=== PATIENT | female | born 1945 | race Caucasian/White ===

== ENCOUNTER 2020-01-05 06:43 | Day surgery (SDC) | payer MEDICARE ==
[2019-12-29 15:17] LABS: BASOPHILS # (AUTO) 0.1 X10'3 (0-0.2); BASOPHILS % (AUTO) 0.6 % (0-1); EOSINOPHILS # (AUTO) 0.1 X10'3 (0-0.9); EOSINOPHILS % (AUTO) 0.9 % (0-6); LYMPHOCYTES # (AUTO) 1.8 X10'3 (1.1-4.8); MEAN CORPUSCULAR HEMOGLOBIN 31.2 PG (27.0-31.0); MEAN CORPUSCULAR HGB CONC 33.4 g/dL (33.0-36.5); MEAN CORPUSCULAR VOLUME 93.4 FL (78-98); MEAN PLATELET VOLUME 7.4 FL (7.4-10.4); MONOCYTES # (AUTO) 0.4 X10'3 (0-0.9); MONOCYTES % (AUTO) 4.5 % (2-12); NEUTROPHILS # (AUTO) 6.6 X10'3 (1.8-7.7); PRE OP HEMATOCRIT 40.9 % (35.0-45.0); PRE OP HEMOGLOBIN 13.6 g/dL (12.0-16.0); PRE OP PLATELET COUNT 243 X10'3 (140-440); RED BLOOD COUNT 4.37 X10'6 (4.20-5.60); RED CELL DISTRIBUTION WIDTH 14.7 % (11.5-14.5)
[2019-12-29 15:20] LABS: CLARITY,URINE SLIGHTLY CLOUDY (Clear); COLOR,URINE YELLOW (Yellow); GLUCOSE, URINE NEGATIVE (Neg); KETONES,URINE NEGATIVE (Neg); LEUKOCYTE ESTERASE ,URINE MODERATE (Neg); NITRITES, URINE NEGATIVE (Neg); OCCULT BLOOD,URINE NEGATIVE (Neg); PH,URINE 5.5 (4.8-8.0); PROTEIN,URINE NEGATIVE (Neg); UROBILINOGEN,URINE 0.2 E.U/dL (0.2-1.0)
[2019-12-29 15:29] LABS: ALBUMIN 3.8 G/DL (3.4-5.0); ALBUMIN/GLOBULIN RATIO 1.2 (1.1-1.5); ALKALINE PHOSPHATASE 79 IU/L (46-116); BLOOD UREA NITROGEN 9 MG/DL (7-18); BUN/CREATININE RATIO 11.8 (6.6-38.0); CHLORIDE 105 MMOL/L (99-107); CREATININE 0.76 MG/DL (0.40-0.90); PRE OP ALT 22 U/L (30-65); PRE OP ANION GAP 5 (8-16); PRE OP AST 24 U/L (10-37); PRE OP BILIRUB, TOTAL 0.4 MG/DL (0.0-1.0); PRE OP GLUCOSE 100 MG/DL (70-104); PRE OP POTASSIUM 3.7 MMOL/L (3.4-5.1); PRE OP SODIUM 141 MMOL/L (135-145); TOTAL CARBON DIOXIDE 30.8 MMOL/L (24-32); TOTAL PROTEIN 7.1 G/DL (6.4-8.2); eGFR 75 ML/MIN
[2019-12-29 15:39] LABS: UA COLLECTION TYPE CLN CATCH MIDSTREAM
[2019-12-29 15:41] LABS: BACTERIA,URINE 1+ /HPF (Neg); CAL OXALATE CRYSTALS 2+ /HPF (NEGATIVE); MUCUS STRANDS FEW /LPF (Neg); SQUAMOUS EPITHELIAL CELL,UR MANY /LPF (FEW)
[2019-12-29 15:42] LABS: RBC,URINE 0-2 /HPF (0-2); TRANSITIONAL EPI CELLS,URINE FEW /HPF
[~2020-01-05] VITALS: Ht 165.1 cm; Wt 61.8 kg
[2020-01-05] VITALS (49 sets, daily range): BP systolic 109–162; BP diastolic 50–87
[~2020-01-05 06:43] MED LIST: ASPI-611 PO; CHOL20004 PO; CITA20TA16 PO; FURO20TA4 PO; HYDR-3965 PO; LAMO200T10 PO; METH20TA PO; RISP0.253 PO; SIMV-45 PO; VIT B12 PO; ceFAZolin 2gm in dextrose, iso 50 ML IV ONE; famotidine 10mg tablet PO ONE; ringers solution, lacted 1,000 ML IV SCH
[2020-01-05] MEDS ORDERED: BUPIVAcaine/PF 2.5 mg/ml (0.25%) 30ml vial ONE (06:57)
[2020-01-05] MEDS ORDERED: LIDOcaine 1% (10mg/ml) 2ml vial ONE (07:04)
[2020-01-05] MEDS ORDERED: sevoflurane 250ml liquid IH ONE (09:16)
[2020-01-05] MEDS ORDERED: morphine 2 MG/ML inj. syringe IV PRN (09:20)
[2020-01-05] MEDS ORDERED: hydrALAZINE 20mg/ml inj. IV PRN (09:20)
[2020-01-05] MEDS ORDERED: ondansetron/PF 4mg/2ml inj IV PRN ×2 (09:20→16:10)
[2020-01-05] MEDS ORDERED: fentaNYL/PF 50MCG/1 ML 2ML syringe IV PRN (09:20)
[2020-01-05] MEDS ORDERED: labetalol 20mg/4ml (5mg/ml) syringe IV PRN (09:20)
[2020-01-05] MEDS ORDERED: morphine 4 MG/ML inj SYRINge IV PRN (09:20)
[2020-01-05] MEDS ORDERED: ringers solution, lacted 1,000 ML IV SCH (09:20)
[2020-01-05] MEDS ORDERED: fentaNYL/PF 50MCG/1 ML 2ML syringe ONE (09:24)
[2020-01-05] MEDS ORDERED: midazolam 2 mg/2 ml injection ONE (09:24)
[2020-01-05] MEDS ORDERED: propofol inj 20 ML IV ONE (09:27)
[2020-01-05] MEDS ORDERED: rocuronium 10mg/ml inj IV ONE (09:27)
[2020-01-05] MEDS ORDERED: LIDOcaine 2% (20mg/ml) 5ml vial ONE (09:27)
[2020-01-05] MEDS ORDERED: dexamethasone sod phosphate 4mg/ml inj. ONE (09:32)
[2020-01-05] MEDS ORDERED: neostigmine methylsulfate 1 MG/ML 10ml vial ONE (09:33)
[2020-01-05] MEDS ORDERED: ondansetron/PF 4mg/2ml inj ONE (09:33)
[2020-01-05] MEDS ORDERED: glycopyrrolate 0.2mg/ml inj ONE (09:33)
[2020-01-05] MEDS ORDERED: ePHEDrine 50MG/ML INJ. ONE (09:38)
--- NOTE | 2020-01-05 10:36 | NUR ---
Received from OR via [facility], accompanied by Anesthesiologist FARZAD and report given by Anesthesiolgist. PATIENT WITH 20G PIV LEFTF UE RUNNING LR AT 100. DENIES PAIN AT THIS TIME. PATIENT WITH GT TO RIGHT ABDOMEN. VSS. BANDAIDS AND ABDOMINAL DRESSING IS CDI. Addendum: 01/05/20 at 1046 by Sudhir Bob RN, RN Amended: Links added.
[2020-01-05] MEDS: fentaNYL/PF 50MCG/1 ML 2ML syringe IV PRN ×2 (11:03→12:43)
--- NOTE | 2020-01-05 11:56 | NUR ---
Report called to receiving nurse. Transferred via [facility]URNEY WITH ALL Belongings TO THE PAS UNIT. Special Issues communicated to receiving nurse ISACC BERTRAND.PATIENT ON 4LPM NASAL CANNULA SATURATING IN THE MID-HIGH 80'S. BP WNL AND PATIENT WITHOUT SIGNS OF BLEED NOR HYPOVOLEMIA. Addendum: 01/05/20 at 1214 by Sudhir Bob RN, RN Amended: Links added.
--- NOTE | 2020-01-05 12:06 | NUR ---
ASSUMED CARE OF PT, ATTACHED TO MONITOR, SA02 86% ON R/A ATTACHED NC 6 LITERS, ONLY INCREASED TO 88 PT PAINFUL, ABDOMINAL DRSG CDI, GT W/SMALL AMT OF BLOODY DRAINAGE, PT PLACED ON SIMPLE MASK AND INCREASED TO 12 LITERS, SAO2 UP TO 91%, 2 MG MORPHINE GIVEN. Addendum: 01/05/20 at 1233 by Amy Madrigal RN Amended: Links added.
[2020-01-05] MEDS ORDERED: oxyCODONE/APAP 5-325mg tablet PO ONE (13:15)
[2020-01-05] MEDS ORDERED: furosemide 40mg/4ml inj IV ONE (13:25)
--- NOTE | 2020-01-05 14:40 | NUR ---
PTS SA02 DOWN TO MID 60'S, PT TIRED BUT DENIES SOB, ATTACHED TO ANOTHER MONITOR TO CORRELATE AND BOTH MONITORS ON BOTH OF PTS WARM HANDS SHOW SA02 IN 60'S, SAT PT UP, PLACED ON NON-REBREATHER W/SA02 IMPROVING TO 80'S, CALL INTO DR PANDA FOR UPDATE, ORDERED CXR AND ISTAT, BOTH COMPLETED, PT TIRED BUT REMAINS A/O X 4, IS ABLE TO CARRY A CONVERSATION, PT STATES SHE NEEDS TO GET UP TO USE BATHROOM, PT INSTEAD PLACED ON BEDPAN FOR VOID AMT OF 210 YELLOW URINE. MONITORING AND WEANING TOLERATED, AWAITING DR ELLIOTT ORDERS. Addendum: 01/05/20 at 1603 by Amy Madrigal RN Amended: Links added.
[2020-01-05 15:06] LABS: ISTAT CREATININE 0.7 mg/dL (0.6-1.1); ISTAT HGB 13.9 g/dl (12.0-16.0); ISTAT IONIZED CALCIUM 1.14 mmol/L (1.03-1.32); ISTAT K 3.6 mmol/L (3.5-5.1); POC BUN/CREATININE RATIO 17.1 (6.6-38.0)
[2020-01-05] MEDS ORDERED: HYDROcodone/acetaminophen 10/325mg tab PO PRN (16:10)
[2020-01-05] MEDS ORDERED: HYDROcodone/acetaminophen 5mg/325mg tablet PO PRN ×2 (16:10→18:50)
--- NOTE | 2020-01-05 16:56 | NUR ---
RECEIVED REPORT FROM [facility]. PT WILL BE UP SOON
--- NOTE | 2020-01-05 17:26 | NUR ---
PT GIVEN PERCOCET FOR ABD PAIN PRIOR TO TRANSPORTING, Report called to receiving nurse. Transferred via GURNEY ON 8 LITERS ON SIMPLE MASK TO ROOM 348B, PT WAS ABLE W/ASSISTANCE TO AMBULATE FROM RNEY TO BED APPROX 10 FEET, 1 BAG OF PERSONAL Belongings, CELL PHONE AND DENTURES SENT W/PT. RECEIVING RN AT BEDSIDE TO RECEIVE PT, BLL, CALL LIGHT GIVEN TO PT. Special Issues communicated to receiving nurse. YES. Addendum: 01/05/20 at 1740 by Amy Madrigal RN Amended: Links added.
--- NOTE | 2020-01-05 17:32 | NUR ---
PT CAME UP FROM [facility]. SET HER UP ON A CONT PULSE OX
--- NOTE | 2020-01-05 18:00 | NUR ---
Patient in room [facility] 348 I have received report from Isaebl BERTRAND and had the opportunity to ask questions and assume patient care.
[2020-01-05] MEDS: citalopram 20mg tablet PO SCH (20:27)
[2020-01-05] MEDS ORDERED: risperiDONE 0.5mg tablet PO SCH (21:00)
[2020-01-05] MEDS ORDERED: atorvastatin 20mg tablet PO SCH (21:00)
[2020-01-05] MEDS ORDERED: lamoTRIgine 100mg tablet PO SCH (21:00)
[2020-01-06] VITALS: BP 130/81
--- NOTE | 2020-01-06 06:27 | NUR ---
Problems reprioritized. Patient report given, questions answered & plan of care reviewed with Maral BERTRAND.
--- NOTE | 2020-01-06 06:28 | NUR ---
Patient in room [facility] 348. I have received report from JERZY Wylie and had the opportunity to ask questions and assume patient care.
[2020-01-06 07:46] VITALS: BP 116/58
[2020-01-06] MEDS ORDERED: aspirin 81mg tablet.DR PO SCH (08:00)
[2020-01-06] MEDS ORDERED: cyanocobalamin 500mcg tablet PO SCH (08:00)
[2020-01-06] MEDS ORDERED: vitamin D (cholecalciferol) 1,000 unit tablet PO SCH (08:00)
[2020-01-06] MEDS ORDERED: furosemide 20MG tablet PO SCH (08:00)
[2020-01-06] MEDS: citalopram 20mg tablet PO SCH (08:11)
[2020-01-06] MEDS: methylphenidate 5mg tablet PO SCH ×2 (08:13→12:22)
[2020-01-06] MEDS: oxyCODONE/APAP 5-325mg tablet PO PRN ×3 (08:13→16:37)
[2020-01-06 11:00] VITALS: BP 103/58
--- NOTE | 2020-01-06 15:50 | NUR ---
Student documentation: I have reviewed all interventions, assessments performed and documented by Fausto NICK from [facility].
--- NOTE | 2020-01-06 17:40 | NUR ---
Pt discharged to home at 1650, with all belongings, in private vehicle. Discharge instructions and medications reviewed. No new prescriptions ordered. Pt instructed to follow up with Dr Ramsey office, phone number provided. Pt also instructed to follow up with PCP regarding O2 saturation and use during the day. GT drain DC'd, pt tolerated well. IV DC'd, cannula intact. Pt escorted to front lobby via wheelchair.
== END 2020-01-06 16:50 | disposition home or self-care (01) ==
LOC: PAS 06:43 → SUR 3N 16:09 → PAS 01-06 16:50
PROVIDERS: ATTEND Surgery
PROC: 0FT44ZZ Resection of Gallbladder, Percutaneous Endoscopic Approach (ICD-10-PCS; principal; 2020-01-05 09:16)
DX: K80.00 Calculus of gallbladder with acute cholecystitis without obstruction (principal); R10.9 Unspecified abdominal pain; K44.9 Diaphragmatic hernia without obstruction or gangrene; K86.1 Other chronic pancreatitis; I51.81 Takotsubo syndrome; Z87.891 Personal history of nicotine dependence; E78.5 Hyperlipidemia, unspecified; F98.8 Other specified behavioral and emotional disorders with onset usually occurring in childhood and adolescence
CPT/HCPCS: 36415; 47562; 71045; 80047; 80053; 81001; 82948; 85025; 87635; J1100; J1940; J2001; J2250; J2270; J2405; J2704; J2710; J3010; J3490; J7120; 88304; A4215; A4618; A7000; G0378

== ENCOUNTER 2020-02-21 08:48 | Day surgery (SDC) | payer MEDICARE ==
[2020-02-21] VITALS (7 sets, daily range): BP systolic 102–128; BP diastolic 46–74
[~2020-02-21 08:48] MED LIST changes: +ALBU8.5H8 INH; +AMOX-580 PO; +BUDE10.22 INH; +LACT1CAP26 PO; +LACT330L; +PANT40TA54 PO; +POTA8TAB57 PO; +PRED10TA23 PO; +[UNRECOGNIZED DRUG - CODE]; -ceFAZolin 2gm in dextrose, iso 50 ML IV ONE; -famotidine 10mg tablet PO ONE; -ringers solution, lacted 1,000 ML IV SCH
== END 2020-02-21 11:25 | disposition home or self-care (01) ==
LOC: SSTAY O 08:48
PROVIDERS: ATTEND Radiology Diagnostic Radiology
DX: J90 Pleural effusion, not elsewhere classified (principal); Z20.828 Contact with and (suspected) exposure to other viral communicable diseases; J43.9 Emphysema, unspecified; I25.10 Atherosclerotic heart disease of native coronary artery without angina pectoris; Z90.49 Acquired absence of other specified parts of digestive tract; Z90.710 Acquired absence of both cervix and uterus; Z98.890 Other specified postprocedural states; Z87.891 Personal history of nicotine dependence; Z79.82 Long term (current) use of aspirin; Z79.899 Other long term (current) drug therapy; Z80.0 Family history of malignant neoplasm of digestive organs; Z82.49 Family history of ischemic heart disease and other diseases of the circulatory system
CPT/HCPCS: 32555; 36415; 71045; 87635

== ENCOUNTER 2022-12-27 07:03 | Day surgery (SDC) | payer MEDICARE ==
[2022-12-24 12:17] LABS: BASOPHILS % (AUTO) 0.5 % (0-1); EOSINOPHILS # (AUTO) 0.1 X10'3 (0-0.9); EOSINOPHILS % (AUTO) 1.7 % (0-6); LYMPHOCYTES % (AUTO) 17.7 % (21-51); MEAN CORPUSCULAR HEMOGLOBIN 30.9 PG (27.0-31.0); MEAN CORPUSCULAR HGB CONC 32.8 g/dL (33.0-36.5); MEAN CORPUSCULAR VOLUME 94.1 FL (78-98); MEAN PLATELET VOLUME 7.2 FL (7.4-10.4); MONOCYTES # (AUTO) 0.3 X10'3 (0-0.9); MONOCYTES % (AUTO) 6.3 % (2-12); NEUTROPHILS # (AUTO) 4.1 X10'3 (1.8-7.7); NEUTROPHILS % (AUTO) 73.8 % (42-75); PRE OP HEMATOCRIT 40.6 % (35.0-45.0); PRE OP HEMOGLOBIN 13.3 g/dL (12.0-16.0); PRE OP PLATELET COUNT 163 X10'3 (140-440); PRE OP WHITE BLOOD COUNT 5.5 10'3 (4.8-10.8); RED BLOOD COUNT 4.32 X10'6 (4.20-5.60); RED CELL DISTRIBUTION WIDTH 14.4 % (11.5-14.5)
[2022-12-24 12:34] LABS: ALBUMIN 3.2 G/DL (3.4-5.0); ALBUMIN/GLOBULIN RATIO 0.9 (1.1-1.5); ALKALINE PHOSPHATASE 104 IU/L (46-116); BLOOD UREA NITROGEN 4 MG/DL (7-18); BUN/CREATININE RATIO 4.5 (10.0-20.0); CALCIUM 9.4 MG/DL (8.5-10.1); CHLORIDE 104 MMOL/L (99-107); CREATININE 0.88 MG/DL (0.40-0.90); PRE OP ALT 27 U/L (30-65); PRE OP ANION GAP 7 (8-16); PRE OP AST 33 U/L (10-37); PRE OP BILIRUB, TOTAL 0.4 MG/DL (0.0-1.0); PRE OP GLUCOSE 177 MG/DL (70-104); PRE OP SODIUM 142 MMOL/L (135-145); TOTAL CARBON DIOXIDE 30.6 MMOL/L (24-32); TOTAL PROTEIN 6.6 G/DL (6.4-8.2); eGFR 62 ML/MIN
[2022-12-24 12:41] LABS: PRE OP POTASSIUM 2.8 MMOL/L (3.4-5.1)
[2022-12-27] VITALS (9 sets, daily range): BP systolic 114–131; BP diastolic 66–83; PULSE 70–93; RESP 9–16; TEMP 98.1; O2SAT 94–100
[~2022-12-27] VITALS: Ht 162.6 cm; Wt 54.4 kg
[~2022-12-27 07:03] MED LIST changes: +ACET-76 PO; -ALBU8.5H8 INH; -AMOX-580 PO; -BUDE10.22 INH; -LACT1CAP26 PO; -LACT330L; -PANT40TA54 PO; -POTA8TAB57 PO; +POTA8TAB58 PO; -PRED10TA23 PO; +ROPI0.2544 PO; -[UNRECOGNIZED DRUG - CODE]; +famotidine 20mg tablet PO ONE; +ringers solution, lacted 1,000 ML IV SCH
[2022-12-27 09:25] LABS: ISTAT CREATININE 0.8 mg/dL (0.6-1.1); ISTAT HGB 12.2 g/dl (12.0-16.0); ISTAT IONIZED CALCIUM 1.26 mmol/L (1.03-1.32); ISTAT K 3.3 mmol/L (3.5-5.1); POC BUN/CREATININE RATIO 6.3 (6.6-38.0)
[2022-12-27] MEDS ORDERED: fentaNYL/PF 50MCG/1 ML 2ML syringe ONE (09:28)
[2022-12-27] MEDS ORDERED: LIDOcaine 2% (20mg/ml) 5ml vial ONE (09:31)
[2022-12-27] MEDS ORDERED: propofol inj 20 ML IV ONE (09:31)
[2022-12-27] MEDS ORDERED: rocuronium 10mg/ml inj IV ONE ×2 (09:31→11:14)
[2022-12-27] MEDS ORDERED: sevoflurane 250ml liquid IH ONE (09:40)
[2022-12-27] MEDS ORDERED: LIDOCAINE 4% (40MG/ML) topical solution 50ml **BRONCH ONLY ONE (10:04)
[2022-12-27] MEDS ORDERED: epiNEPHrine 1 MG/ML 1 ml ampule **BRONCH ONLY ONE (10:04)
[2022-12-27] MEDS ORDERED: ondansetron/PF 4mg/2ml inj ONE (11:15)
[2022-12-27] MEDS ORDERED: dexamethasone sod phosphate 4mg/ml inj. ONE (11:15)
[2022-12-27] MEDS ORDERED: sugammadex 200mg/2ml injection IV ONE (11:15)
[2022-12-27] MEDS ORDERED: phenylephrine 10mg/ml inj. -priapism dosing ONE (11:15)
--- NOTE | 2022-12-27 11:22 | NUR ---
Received from OR via [facility] TO RR 6, accompanied by Anesthesiologist DR HERNANDEZ and report given by Anesthesiolgist. PT PRESENTS WITH 20G PIV LEFT AC, SP02 100 6L MASK, LR RUNNING AT 100MLS/HR, VSS. Addendum: 12/27/22 at 1136 by Gris Bob RN, RN Amended: Links added.
--- NOTE | 2022-12-27 12:14 | NUR ---
PT INSTRUCTED ON HOW TO USE INCENTIVE SPIROMETER, PT VERBALIZED UNDERSTANDING WITH RETURN DEMONSTRATION.
--- NOTE | 2022-12-27 12:32 | NUR ---
ALL DISCHARGE CRITERIA HAS BEEN MET. VSS, PAIN AT A TOLERABLE LEVEL, VOIDING AND ABLE TO SAFELY AMBULATE AND TRANSFER SELF. IV TAKEN OUT WITHOUT ANY COMPLICATIONS. ALL DISCHARGE INSTRUCTIONS COVERED WITH PATIENT AND ALL QUESTIONS ANSWERED. PATIENT TAKEN OUT VIA WHEELCHAIR TO PERSONAL VEHICLE WHERE FAMILY/FRIEND DROVE PATIENT HOME. Addendum: 12/27/22 at 1240 by Gris Bob RN, RN Amended: Links added.
== END 2022-12-27 12:32 | disposition home or self-care (01) ==
LOC: PAS 07:03
PROVIDERS: ATTEND Internal Medicine Critical Care Medicine
DX: R22.2 Localized swelling, mass and lump, trunk (principal); C34.12 Malignant neoplasm of upper lobe, left bronchus or lung; I10 Essential (primary) hypertension; J43.9 Emphysema, unspecified; F41.9 Anxiety disorder, unspecified; F90.9 Attention-deficit hyperactivity disorder, unspecified type
CPT/HCPCS: 31623; 31624; 31628; 31653; 36415; 71045; 71250; 80047; 80053; 85025; 87070; 88341; 93005; 94760; J0171; J1100; J2370; J2405; J2704; J3010; J3490; J7120; Z7506; Z7508; Z7512; 31622; 31625; 31627; 31654; 88108; 88173; 88305; 88313; 88342; A4618